=== PATIENT | female | born 1970 | race Caucasian/White ===

== ENCOUNTER → 2017-11-14 | Outpatient (REF) | LOC: M SMT 13:05 | DX: Z00.00 Encounter for general adult medical examination without abnormal findings (principal) ==

== ENCOUNTER → 2018-12-11 | Outpatient (REF) ==
--- NOTE | 2018-12-11 19:19 | REP ---
LUMBOSACRAL SPINE, PARTIAL: 12/11/2018. Comparison: 11/14/2017. Clinical history: Disability. Pain. Findings: Three views are provided. There are right upper quadrant surgical clips from prior cholecystectomy. The pedicles, spinous and transverse processes align normally on the AP view. There is no scoliosis. Some minor sclerosis along the iliac and sacral margin of the right SI joint compared to left, but no widening of that joint space. Sacral ala and foramina intact. Lower thoracic vertebral bodies and the visualized ribs without acute finding. There are marginal osteophytes and syndesmophytes in the lower thoracic spine. Lateral view shows slight loss of lordosis. There is minimal disc space narrowing at the L3-4 and L4-5 compared to the L2-3 level, there is also mild disc space narrowing at L1-2. I see no compression deformity. There is facet arthropathy at L4-5 and L5-S1. No compression fracture, spondylolysis or spondylolisthesis. Impression: 1. Degenerative disc disease and facet arthritis as described. No interval change. Electronically Signed by Don Gu MD 12/11/2018 07:49 P
== END ==
LOC: M SMT 15:18
PROVIDERS: ATTEND Internal Medicine
DX: Z00.00 Encounter for general adult medical examination without abnormal findings (principal)